=== PATIENT | male | born 1950 | race American Indian/Alaskan Native ===

== ENCOUNTER → 2018-11-18 14:15 | Outpatient (CLI) | payer OTHER, SELFPAY ==
--- NOTE | 2018-11-18 14:17 | DI.RAD.S_ITS ---
PROCEDURE: XR CHEST 2V INDICATIONS: worsening cough and rhales left side TECHNIQUE: 2 views of the chest were acquired. COMPARISON: [facility], , CHEST 2 VIEW, 03/07/2008, 8:12. FINDINGS: Surgical changes and devices: Median sternotomy wires and mediastinal surgical clips are again noted. Lungs and pleura: No focal consolidations are identified. No pleural effusions or pneumothorax. Mediastinum: Mediastinal contours are normal. There is posterior accentuation of the cardiac silhouette, which may represent left atrial enlargement. Bones and chest wall: No suspicious bony abnormalities. Soft tissues appear unremarkable. Posterolateral right eighth rib deformity is unchanged from comparison exam. Mild multilevel degenerative changes of the thoracic spine. IMPRESSION: No focal pulmonary consolidation consistent with pneumonia. Dictated by: Omer Su M.D. on 11/18/2018 at 15:09 Approved by: Omer Su M.D. on 11/18/2018 at 15:13
== END ==
PROVIDERS: PCP Family Medicine; Visit Provider Physician Assistant
DX: R05 Cough (principal); R09.89 Other specified symptoms and signs involving the circulatory and respiratory systems
CPT/HCPCS: 71046

== ENCOUNTER → 2019-01-02 08:01 | Outpatient (CLI) | payer OTHER, SELFPAY ==
[2019-01-02 09:12] LABS: Hemoglobin A1C% w Est Avg Glu 7.7 % (4.0-6.0)
[2019-01-02 09:29] LABS: Alanine Aminotransferase 52 IU/L (21-72); Albumin Globulin Ratio 1.3 (1.0-2.8); Alkaline Phosphatase 76 U/L (38-126); Aspartate Aminotransferase 40 IU/L (17-59); BUN Creatinine Ratio 21.3 (6-22); Bilirubin Total 0.8 mg/dL (0.2-1.3); Blood Urea Nitrogen 17 mg/dL (9-20); Calcium 9.1 mg/dL (8.4-10.2); Carbon Dioxide 26 mmol/L (22-32); Chloride 105 mmol/L (98-107); Estimated Glomerular Filt Rate > 60.0 mL/min (>60); Globulin 3.2 g/dL (1.7-4.1); Glucose 159 mg/dL (80-110); HEMOLYSIS < 15 (0-50); Potassium 4.8 mmol/L (3.4-5.1); Sodium 140 mmol/L (137-145); Total Protein 7.2 g/dL (6.3-8.2)
[2019-01-02 09:42] LABS: Free T3, Triiodothyronine Free 3.96 pg/mL (2.77-5.27); Free T4, Direct Thyroxine 0.89 ng/dL (0.78-2.19)
[2019-01-02 09:56] LABS: Thyroid Stimulating Hormone 4.99 uIU/mL (0.47-4.68)
[2019-01-02 14:59] LABS: INR 2.7 (0.9-1.3); Prothrombin Time 31.3 SECONDS (10.1-12.7)
== END ==
PROVIDERS: Family Provider Internal Medicine Cardiovascular Disease; PCP Family Medicine; Visit Provider Family Medicine
DX: E11.9 Type 2 diabetes mellitus without complications (principal); E78.5 Hyperlipidemia, unspecified; I10 Essential (primary) hypertension; R79.89 Other specified abnormal findings of blood chemistry; Z78.9 Other specified health status
CPT/HCPCS: 36415; 80053; 83036; 84439; 84443; 84481; 85610

== ENCOUNTER → 2019-01-29 11:52 | Outpatient (CLI) | payer OTHER, SELFPAY ==
--- NOTE | 2019-01-29 11:55 | DI.RAD.S_ITS ---
PROCEDURE: XR KNEE LT 3V INDICATIONS: Fall, swelling, pain, on blood thinners TECHNIQUE: 3 views of the knee were acquired. COMPARISON: None. FINDINGS: Bones: No displaced fracture or dislocation is identified. No suspicious osseous lesion is appreciated. Soft tissues: There is a moderate-sized knee joint effusion. Surgical clips are seen along the posterior-medial aspect of the knee. IMPRESSION: 1. No acute fracture of the left knee. 2. Small moderate-sized knee joint effusion. If there is clinical concern for a nonvisualized fracture, please consider CT or MRI for further evaluation. Dictated by: Armando Bella M.D. on 01/29/2019 at 11:24 Approved by: Armando Bella M.D. on 01/29/2019 at 11:24
== END ==
PROVIDERS: PCP Family Medicine; Visit Provider Physician Assistant
DX: S80.02XA Contusion of left knee, initial encounter (principal); M25.462 Effusion, left knee; W19.XXXA Unspecified fall, initial encounter
CPT/HCPCS: 73562

== ENCOUNTER 2019-05-11 14:04 | Day surgery (SDC) | payer OTHER, SELFPAY ==
--- NOTE | 2019-05-11 14:03 | PM.HP.1 ---
History of Present Illness History of Present Illness Date Patient Seen: 05/11/19 Time Patient Seen: 14:04 Chief complaint: 05903 SCREENING COLONOSCOPY Narrative: Patient presents for colorectal screening. They a previous colonoscopy 10 years ago that was negative. On further history denies any recent gastrointestinal symptoms. No nausea, vomiting, abdominal pain, loss of appetite, unexplained weight loss, change in bowel habits, diarrhea, constipation, melena, hematochezia, or bright red blood per rectum. Stop Warfarin for Afib 5 days ago INR today 1.1. Patient History Medical History Atrial fibrillation (Chronic Unknown) Coronary artery disease (Chronic Unknown) Diabetes (Chronic Unknown) History of ETOH abuse (Resolved Unknown) Hyperlipemia (Chronic Unknown) Hypertension (Chronic Unknown) Medial meniscus tear (Resolved 2015) Rosacea (Chronic Unknown) Surgical History H/O arthroscopic knee surgery (Resolved 10/2015) Hx of heart bypass surgery (Resolved 01/2008) Status post appendectomy (1959) Family History (Updated 10/04/14 @ 00:00 by Conversion Provider) Mother Tobacco abuse Father No problems noted. Social History (Updated 01/02/19 @ 09:31 by Kamila Murdock RN) marital status: household members: spouse occupational status: previously employed Smoking Status: Former smoker (Quit 1970) Tobacco: How many years used: 5 alcohol intake: current substance use type: marijuana Family & Social History Family History Mother Tobacco abuse Father No problems noted. Tobacco & Substance use: Smoking Status Former smoker alcohol intake current Meds Home Medications and Allergies Home Medications Medication Instructions Recorded Confirmed Type ASPIRIN (Aspirin EC) 81 mg PO Q DAY #0 12/16/12 01/20/19 History CHOLECALCIFEROL (VITAMIN D) 2,000 iu PO #0 12/16/12 01/20/19 History doxycycline hyclate 50 mg capsule 50 mg PO DAILY cap 09/16/18 01/20/19 History lisinopril 5 mg tablet 5 mg PO QDAY #30 tab 01/20/19 Rx warfarin 5 mg tablet See Rx Instructions .ROUTE 01/26/19 Rx .COMPLEX #90 tab metoprolol tartrate 50 mg tablet 100 mg PO DAILY #60 tab 03/28/19 Rx metformin 500 mg tablet 1,000 mg PO BID #120 tab 05/03/19 Rx atorvastatin [Lipitor] 20 mg PO QDAY 05/11/19 05/11/19 History Allergies Allergy/AdvReac Type Severity Reaction Status Date / Time No Known Drug Allergies Allergy Verified 05/11/19 14:18 Review of Systems Review of Systems ROS Unobtainable: All systems reviewed & are unremarkable except as noted in HPI and below Exam Narrative Exam Narrative: General-no acute distress, well nourished HEENT-moist mucous membranes, no scleral icterus Neck-supple, no lymphadenopathy Chest- non labored respirations, clear to auscultation bilaterally Cardiac-regular rate no peripheral edema Abdomen-soft, nontender, non distended Extremities-warm, well perfused Neurological-alert and oriented, no focal deficits Assessment & Plan Assessment and plan (1) Screening for colon cancer: Current visit: No Status: Acute Assessment & Plan narrative: Patient is requiring colorectal screening. Colonoscopy is recommended. Technical details were discussed. Risks, benefits, alternatives explained. Risks including but not limited to sedation, aspiration, bleeding, pain, missed lesion, incomplete examination, need for further radiographic studies, colonic perforation, need for major abdominal surgery, and all attendant risks major surgery were discussed at length. All questions were answered to their satisfaction, and they voiced understanding.
[2019-05-11] MEDS: SODIUM CHLORIDE 0.9% 1,000 ML 200 ML IV (14:17)
[2019-05-11 14:23] VITALS: BP 159/95; PULSE 71; RESP 15; TEMP 36.4; O2SAT 95
[2019-05-11 14:25] VITALS: BMI 27.7
[2019-05-11] MEDS: MIDAZOLAM 5 MG/5 ML VIAL IV (14:54)
[2019-05-11] MEDS: fentaNYL 250 MCG/5 ML INJ IV (14:55)
[2019-05-11 15:17] VITALS: BP 101/72; PULSE 69; RESP 9; TEMP 36.6; O2SAT 98
--- NOTE | 2019-05-11 15:17 | PM.OP.ENDO ---
Operative Date/Time/Diagnoses Date of procedure: 05/11/19 Time of procedure: 15:17 Pre-op diagnosis: screening colonoscopy Post-op diagnosis: same Procedure & Clinicians Study performed: colonoscopy Same procedure as scheduled: Yes Indications: 68-year-old male previous colonoscopy 10 years ago that was normal presents for routine screening Surgeon: Bernardo Iraheta Procedure Notes SCOAP/Timeout: Performed Procedure in detail: Patient placed in left lateral decubitus position. Time out was performed. Procedural sedation was administered with Versed and Fentanyl. A rectal exam demonstrated no external hemorrhoids no internal masses. Colonoscopy scope was placed into the rectum and advanced through the colon to the cecum. The ileocecal valve was identified. The scope was then slowly withdrawn examining colon thoroughly in all directions. The colonoscopy was notable for diverticulosis within the sigmoid colon. The remainder of the colon was normal, there were no masses polyps or colitis. The scope was retroflexed within the rectum demonstrated grade 1 internal hemorrhoids. The rectum was desufflated and the scope removed. Patient tolerated procedure well. Scope withdrawal time: 7 Sedation minutes: 21 Findings: diverticulosis and internal hemorrhoids Specimen(s): none sent Complications: none Impression: Diverticulosis Post-procedure Recommendations: Colonscopy in 10 years
[2019-05-11 15:22] VITALS: BP 104/66; PULSE 68; RESP 10; O2SAT 96
[2019-05-11 15:27] VITALS: BP 101/62; PULSE 82; RESP 13; O2SAT 97
[2019-05-11 15:37] VITALS: BP 109/79; PULSE 63; RESP 12; TEMP 36.6; O2SAT 95
--- NOTE | 2019-05-11 15:56 | SUR.PHASEII ---
Brought to [facility], [facility] helping pt to change clothes (spilled juice). IV dc'd. No dizziness/pain, talking to her.
--- NOTE | 2019-05-11 16:10 | SUR.PHASEII ---
1605 To ER entrance to meet , has book, given juice. Denies having any questions/concerns. Stable on feet.
== END 2019-05-11 16:05 | disposition home or self-care (01) ==
LOC: ENDO 14:06
PROVIDERS: PCP Family Medicine; Visit Provider Surgery
PROC: 0DJD8ZZ Inspection of Lower Intestinal Tract, Via Natural or Artificial Opening Endoscopic (ICD-10-PCS; CPT 45378; principal; 2019-05-11 15:00)
DX: Z12.11 Encounter for screening for malignant neoplasm of colon (principal); K57.30 Diverticulosis of large intestine without perforation or abscess without bleeding; K64.8 Other hemorrhoids; I48.91 Unspecified atrial fibrillation; Z79.01 Long term (current) use of anticoagulants
CPT/HCPCS: 45378; 99152; J2250; J3010

== ENCOUNTER → 2020-01-23 14:00 | Outpatient (CLI) | payer OTHER, SELFPAY ==
--- NOTE | 2020-01-23 15:50 | DIET.PN ---
Diabetes Intake: Initial Assessment Assess: Mr. Ballard is a 69 YOM referred for type 2 diabetes. He was diagnosed in the last year. He reports only checking his BG when he feels low which matches the BG results shown on his meter. He does not like checking his glucose and is interested in a home CGM to establish possible trends in readings. He lives with a retired dietitian who is very well known to me and reports he eats what she prepares. Dietary habits consist of whole grain, quinoa, brown rice, fruits, veggies, lean meats (bison, chicken, fish). He does drink beer every afternoon generally before dinner. He has chronic back pain and admits he has not been active for several years. Labs: Per pt report: A1c 9.2 SMB, 43, 56 Meds: metformin 1000 mg BID; glipizide 5mg a.m. Diet: per 24 hr recall: B: ww toast w/ PB, few bits of banana w/ meds L: half sandwich w/ veggies D: lean protein, veg dish, whole grain starch Wt: 200lb Ht: 70in BMI: 28.9 DX: Altered nutrition related laboratory values related to impaired glucose metabolism, lack of previous exposure to nutrition information as evidenced by pt report, diagnosis of diabetes, previous diet high in refined carbohydrates. Intervention: 1. Completed intake assessment. Discussed barriers to care. 2. Discussed pathophysiology of diabetes. Reviewed A1c and its correlation to blood glucose numbers. Discussed recommended BG ranges. 3. Discussed importance of self-monitoring, how often, and when to check. Reviewed use of glucometer. 4. Reviewed hyper/hypoglycemia and treatment. 5. Reviewed safe disposal of equipment (strip/lancets/insulin needles). 6. Created SMART goals for pt self-care and success. 7. Discussed program curriculum outline and class needs based on individual goals. 8. Reviewed medication use and effects on blood glucose. 9. Discussed alcohol and medication interactions. SMART Goals: 1. Patient has agreed to monitor fasting and evening blood glucose. He will look into a trial cont. glucose monitor Monitor/Evaluate: Anticipate good compliance. Pt will attend full DSME program.
== END ==
PROVIDERS: PCP Family Medicine; Referring Provider Family Medicine; Visit Provider Family Medicine
DX: E11.9 Type 2 diabetes mellitus without complications (principal); Z79.84 Long term (current) use of oral hypoglycemic drugs; Z71.3 Dietary counseling and surveillance
CPT/HCPCS: G0108

== ENCOUNTER → 2020-02-08 10:00 | Outpatient (CLI) | payer OTHER, SELFPAY ==
--- NOTE | 2020-02-08 11:46 | DIET.PN ---
Exercise/Lifestyle change: 1. Importance of exercise 2. FITT (frequency, intensity, time, type) 3. Strength training tips and guidelines 4. Glucose monitoring/ranges before and after a. Carbohydrate needs based on glucose ranges and duration/intensity of exercise b. Rule of 15 5. Proper foot attire 6. Developing strategies for behavior change 7. SMART Goal Setting 8. Home exercise routine demonstration (as a class)
== END ==
PROVIDERS: PCP Family Medicine; Referring Provider Family Medicine; Visit Provider Family Medicine
DX: E11.9 Type 2 diabetes mellitus without complications (principal); Z71.3 Dietary counseling and surveillance
CPT/HCPCS: G0109

== ENCOUNTER → 2020-03-05 11:31 | Outpatient (CLI) | payer OTHER, SELFPAY ==
--- NOTE | 2020-03-05 12:54 | DIET.PN ---
DIABETES Nutrition Initial Assessment:? ASSESS:??Mr. Ballard is a 69 yom??referred for type 2 diabetes seen as part of DSME program. He reports a significant decrease in blood sugars since diagnosis. He continues to monitor his BG particularly when he feels he is having hypoglycemia. He endorses more activity since our last visit including walking, yard work and boating. Pt concerned with accuracy of BG monitor as he has noticed several hypo?s without symptoms. ??? LABS: Per pt report:? A1c: 6.4 ? MEDS:?? metformin 1000mg BID; Glipizide 5mg ? DIET: Per 24-hour recall:? B: ww toast w/ pb, few bites of banana w/ meds L: ? sandwich w/ veggies D: lean protein, veg dish, whole grain starch Before bed: few bites banana w/ meds Eating Out: rarely or never Changes in Appetite: no change Nutrition Supplements: vit D ? Weight: 204# Height: 70? BMI: ? 29.27 Exercise:? walking daily, yard work NUTRITION DX 1. Altered Nutrition related labs related to impaired glucose metabolism, lack of previous exposure to accurate nutrition information as evidenced by pt report, dx of diabetes, previous diet high in refined carbohydrates.? INTERVENTION(s): 1. Reviewed pathophysiology of diabetes and impact of nutrition/diet on blood sugar control.? Discussed fed versus non-fed state.?? 2. Discussed the effect of carbohydrates/protein/fat on blood sugar control.? Stressed importance of consistent carbohydrate intake at each meal and provided instructions for recommended servings/portions of carbohydrates/protein per meal. Provided pt with educational material. 3. Reviewed carbohydrate counting and measuring carbohydrate content via serving sizes and reading nutrition labels.? Provided handouts.?? 4. Discussed the difference between simple versus complex carbohydrates and the effect of fiber on blood sugar control.? Discussed various methods to increase fiber content in diet. 5. Stressed importance of meal timing and not going >4-5 hours between meals. Encouraged adding protein to evening snack to support glucose control overnight. Patient agreeable. 6. Discussed healthy weight loss goals of 1-2lbs per week through diet and exercise.? Pt agreeable to walking at least 30 minutes daily. 7. Recommend monitoring fasting and alternating 2 hr PP mealtime glucose. MONITOR/EVALUATE: Anticipate good compliance.? Nutrition follow-up scheduled for 1 month.
[2020-03-05 12:55] VITALS: BMI 29.3
== END ==
PROVIDERS: PCP Family Medicine; Referring Provider Family Medicine; Visit Provider Family Medicine
DX: E11.65 Type 2 diabetes mellitus with hyperglycemia (principal); Z79.84 Long term (current) use of oral hypoglycemic drugs; Z71.3 Dietary counseling and surveillance
CPT/HCPCS: G0109

== ENCOUNTER → 2020-10-30 14:52 | Outpatient (CLI) | payer OTHER, SELFPAY ==
[2020-10-30 17:51] LABS: Free T3, Triiodothyronine Free 3.41 pg/mL (2.77-5.27); Free T4, Direct Thyroxine 0.78 ng/dL (0.78-2.19)
[2020-10-30 18:05] LABS: Thyroid Stimulating Hormone 3.31 uIU/mL (0.47-4.68)
== END ==
PROVIDERS: PCP Family Medicine; Referring Provider Family Medicine; Visit Provider Family Medicine
DX: R79.89 Other specified abnormal findings of blood chemistry (principal)
CPT/HCPCS: 36415; 84439; 84443; 84481

== ENCOUNTER → 2021-05-19 09:24 | Outpatient (CLI) | payer OTHER, SELFPAY ==
[2021-05-19 11:12] LABS: COVID19 -Nasal RAPID Negative (Negative)
== END ==
PROVIDERS: PCP Family Medicine; Visit Provider Physician Assistant
DX: Z01.812 Encounter for preprocedural laboratory examination (principal); Z20.822 Contact with and (suspected) exposure to COVID-19
CPT/HCPCS: 87635

== ENCOUNTER 2021-05-20 06:33 | Day surgery (SDC) | payer OTHER, SELFPAY ==
[2021-05-20] MEDS: PROPARACAINE 0.5% OPHTH SOL 2 DROPS EYE-OP (07:42)
[2021-05-20] MEDS: CATARACT EYE COMPOUND (10 DROPS/SYRINGE) 3 DROPS EYE-OP (07:43)
[2021-05-20 07:49] VITALS: BP 143/75; PULSE 59; RESP 16; TEMP 36.2; O2SAT 98; BMI 28.7
--- NOTE | 2021-05-20 08:33 | PM.PREOP ---
Pre-operative Note Interval Note History & Physical reviewed/Exam performed by Physician: Yes Changes to H&P: No
--- NOTE | 2021-05-20 08:33 | PM.OP.1 ---
Operative Date/Time/Diagnoses Pre-op diagnosis: Nuclear cataract right eye Procedure & Clinicians Procedure: Cataract Surgery Same procedure as scheduled: Yes Surgeon: Santi Red Anesthesia Type: MAC +/- and Sedation Operative Notes Procedure in detail: Patient brought to the operating suite. Tetracaine drops placed in the right eye. marking instrument was used to ana the vertical and horizontal meridians. Patient was prepped and draped in sterile manner. Wire lid speculum was placed in the eye. Betadine drops were placed on the eye. This was irrigated. Lidocaine jelly was placed on the eye. A paracentesis port was created with a side-port blade. 0.1 mL 1% preservative free lidocaine was injected into the anterior chamber. The anterior chamber was deepened with viscoelastic. 2.6 mm keratome was used to create a temporal clear corneal incision. Cystotome and Utrata forceps were used to create continuous tear capsulorrhexis. Balanced salt solution was used to hydro dissect the nucleus. The phacoemulsification handpiece was inserted and the nucleus was removed using the stop and chop technique. The irrigation aspiration handpiece was inserted and the remaining cortex was removed. Anterior chamber was deepened with viscoelastic. An Adames [id number] intraocular lens with a power of 23.0 was injected into the capsular bag. Irrigation aspiration handpiece was inserted and the remaining viscoelastic was removed. The lens was rotated to the 90 degree meridian. Incision was hydrated with balanced salt solution and found to be leak free with pressure with Weck-Viji sponges. 0.1 mL Vigamox injected anterior chamber. 0.3 mL Kenalog 10 mg was injected subconjunctivally. Lid speculum was removed. The patient left the operating room in excellent condition. Complications: none Post-operative Condition: stable Disposition: same day surgery
[2021-05-20] MEDS: HYALURONATE SODIUM 30 MG-10 MG/ML SYRINGES 1 BOX INTRAOCULA (08:49)
[2021-05-20] MEDS: LIDOCAINE 2% (GLYDO) 6 ML GEL TOP (08:49)
[2021-05-20] MEDS: MOXIFLOXACIN INJ 4 MG/0.8 ML VIAL 0.5 MG EYE-OP (08:49)
[2021-05-20] MEDS: PHENYLEPHRINE/LIDOCAINE VIAL (OR) 0.2 ML EYE-OP (08:50)
[2021-05-20] MEDS: TETRACAINE 0.5% OPHTH DROPS 4 ML 2 DROPS EYE-OP (08:50)
[2021-05-20] MEDS: BALANCED SALT IRRIG SOLN NO.2 500 ML, EPINEPHrine 1 MG IRR (08:52)
[2021-05-20] MEDS: TRIAMCINOLONE 50 MG/5 ML VIAL INJ (08:52)
[2021-05-20 09:14] VITALS: BP 141/81; PULSE 58; RESP 20; TEMP 36.5; O2SAT 100
== END 2021-05-20 09:16 | disposition home or self-care (01) ==
PROVIDERS: PCP Family Medicine; Referring Provider Ophthalmology; Visit Provider Ophthalmology
PROC: (CPT 66984; principal; 2021-05-20 08:45)
DX: H25.11 Age-related nuclear cataract, right eye (principal); E11.9 Type 2 diabetes mellitus without complications; E78.00 Pure hypercholesterolemia, unspecified; I10 Essential (primary) hypertension; I51.9 Heart disease, unspecified; I48.91 Unspecified atrial fibrillation; Z79.84 Long term (current) use of oral hypoglycemic drugs; Z79.01 Long term (current) use of anticoagulants
CPT/HCPCS: 66984; 82962; 85610; J0171; J2250; J3301; V2787

== ENCOUNTER → 2021-06-02 13:34 | Outpatient (CLI) | payer OTHER, SELFPAY ==
[2021-06-02 14:56] LABS: COVID19 -Nasal RAPID Negative (Negative)
== END ==
PROVIDERS: PCP Family Medicine; Visit Provider Nurse Practitioner Family
DX: Z20.822 Contact with and (suspected) exposure to COVID-19 (principal); Z01.812 Encounter for preprocedural laboratory examination
CPT/HCPCS: 87635

== ENCOUNTER 2021-06-03 06:22 | Day surgery (SDC) | payer OTHER, SELFPAY ==
[2021-06-03] MEDS: PROPARACAINE 0.5% OPHTH SOL 2 DROPS EYE-OP (07:09)
[2021-06-03] MEDS: CATARACT EYE COMPOUND (10 DROPS/SYRINGE) 3 DROPS EYE-OP (07:10)
[2021-06-03 07:18] VITALS: BP 137/86; PULSE 61; RESP 16; TEMP 36.8; O2SAT 98; BMI 28.7
--- NOTE | 2021-06-03 07:33 | PM.PREOP ---
Pre-operative Note Interval Note History & Physical reviewed/Exam performed by Physician: Yes Changes to H&P: No
--- NOTE | 2021-06-03 07:33 | PM.OP.1 ---
Operative Date/Time/Diagnoses Pre-op diagnosis: Nuclear Cataract Left eye Post-op diagnosis: same Procedure & Clinicians Same procedure as scheduled: Yes Surgeon: Santi Red Anesthesia Type: MAC +/- and Sedation Operative Notes Procedure in detail: Patient brought to the operating suite. Tetracaine drops placed in the left eye. Marking instrument was used to ana the vertical and horizontal meridians. Patient was prepped and draped in sterile manner. Wire lid speculum was placed in the eye. Betadine drops were placed on the eye. This was irrigated. Lidocaine jelly was placed on the eye. A paracentesis port was created with a side-port blade. 0.1 mL 1% preservative free lidocaine was injected into the anterior chamber. The anterior chamber was deepened with viscoelastic. 2.6 mm keratome was used to create a temporal clear corneal incision. Cystotome and Utrata forceps were used to create continuous tear capsulorrhexis. Balanced salt solution was used to hydro dissect the nucleus. The phacoemulsification handpiece was inserted and the nucleus was removed using the stop and chop technique. The irrigation aspiration handpiece was inserted and the remaining cortex was removed. Anterior chamber was deepened with viscoelastic. An Adames [id number] intraocular lens with a power of 23.0 was injected into the capsular bag. Irrigation aspiration handpiece was inserted and the remaining viscoelastic was removed. The lens was rotated to the 90 degree meridian. Incision was hydrated with balanced salt solution and found to be leak free with pressure with Weck-Viji sponges. 0.1 mL Vigamox injected anterior chamber. 0.3 mL Kenalog 10 mg was injected subconjunctivally. Lid speculum was removed. The patient left the operating room in excellent condition. Complications: none Post-operative Condition: stable Disposition: same day surgery
[2021-06-03] MEDS: MOXIFLOXACIN INJ 4 MG/0.8 ML VIAL 0.5 MG EYE-OP (07:51)
[2021-06-03] MEDS: PHENYLEPHRINE/LIDOCAINE VIAL (OR) 0.2 ML EYE-OP (07:51)
[2021-06-03] MEDS: HYALURONATE SODIUM 30 MG-10 MG/ML SYRINGES 1 BOX INTRAOCULA (07:51)
[2021-06-03] MEDS: TRIAMCINOLONE 50 MG/5 ML VIAL INJ (07:52)
[2021-06-03] MEDS: TETRACAINE 0.5% OPHTH DROPS 4 ML 2 DROPS EYE-OP (07:52)
[2021-06-03] MEDS: BALANCED SALT IRRIG SOLN NO.2 500 ML, EPINEPHrine 1 MG IRR (07:52)
[2021-06-03] MEDS: LIDOCAINE 2% (GLYDO) 6 ML GEL TOP (07:53)
[2021-06-03 08:04] VITALS: BP 120/71; PULSE 60; RESP 16; TEMP 36.7; O2SAT 97
== END 2021-06-03 08:15 | disposition home or self-care (01) ==
PROVIDERS: PCP Family Medicine; Referring Provider Ophthalmology; Visit Provider Ophthalmology
PROC: (CPT 66984; principal; 2021-06-03 07:45)
DX: H25.12 Age-related nuclear cataract, left eye (principal); E11.9 Type 2 diabetes mellitus without complications; E78.00 Pure hypercholesterolemia, unspecified; I10 Essential (primary) hypertension; I51.9 Heart disease, unspecified; Z79.84 Long term (current) use of oral hypoglycemic drugs; Z79.01 Long term (current) use of anticoagulants; I48.91 Unspecified atrial fibrillation; I25.10 Atherosclerotic heart disease of native coronary artery without angina pectoris
CPT/HCPCS: 66984; J0171; J2250; J3301; V2787

== ENCOUNTER → 2022-04-27 09:14 | Outpatient (CLI) | payer OTHER, SELFPAY ==
[2022-04-27 10:10] LABS: INR 1.9 (0.9-1.3); Prothrombin Time 21.9 SECONDS (10.1-12.7)
[2022-04-27 10:14] LABS: Add Manual Diff / Slide Review NO; Basophils Absolute Auto 0 /uL (0-100); Basophils Percent Auto 1.1 % (0-2); Eosinophils Absolute Auto 200 /uL (0-450); Eosinophils Percent Auto 5.9 % (2-4); Hematocrit 37.6 % (41-53); Hemoglobin 12.9 g/dL (13.5-17.5); Lymphocytes Absolute Auto 700 /uL (1100-4500); Lymphocytes Percent Auto 19.6 % (25-40); Mean Corpuscular HGB Conc 34.4 % (30-36); Mean Corpuscular Hemoglobin 31.6 PG (26-34); Mean Corpuscular Volume 91.8 fL (80-100); Monocytes Absolute Auto 300 /uL (0-900); Monocytes Percent Auto 9.1 % (3-14); Neutrophils Absolute Auto 2300 /uL (1500-7000); Neutrophils Percent Auto 64.3 % (50-75); Platelet Count 107 X10^3/uL (150-400); Red Blood Cell Count 4.09 X10^6/uL (4.5-5.9); Red Cell Distribution Width 15.3 % (11.6-14.8); White Blood Cell Count 3.5 X10^3/uL (4.5-11.0)
[2022-04-27 10:15] LABS: Hemoglobin A1C% w Est Avg Glu 6.8 % (4.0-6.0)
[2022-04-27 10:34] LABS: Alanine Aminotransferase 51 IU/L (<50); Albumin Globulin Ratio 1.2 (1.0-2.8); Alkaline Phosphatase 61 U/L (38-126); Aspartate Aminotransferase 43 IU/L (17-59); BUN Creatinine Ratio 20.8 (6-22); Bilirubin Total 0.7 mg/dL (0.2-1.3); Blood Urea Nitrogen 16 mg/dL (9-20); Calcium 8.7 mg/dL (8.4-10.2); Carbon Dioxide 25 mmol/L (22-32); Chloride 106 mmol/L (98-107); Cholesterol 110 mg/dL (140-199); Estimated Glomerular Filt Rate > 60 mL/min (>60); Globulin 3.4 g/dL (1.7-4.1); Glucose 196 mg/dL (80-110); HDL Cholesterol 32 mg/dL (40-60); HEMOLYSIS < 15 (0-50); LDL Cholesterol Calculated 52 mg/dL (<100); Potassium 4.2 mmol/L (3.4-5.1); Sodium 142 mmol/L (137-145); Total Protein 7.4 g/dL (6.3-8.2); Triglycerides 130 mg/dL (35-150)
[2022-04-27 11:00] LABS: Prostate Specific Antigen Scrn 0.549 ng/mL (0.1-4.0)
== END ==
PROVIDERS: PCP Family Medicine; Referring Provider Family Medicine; Visit Provider Family Medicine
DX: E11.42 Type 2 diabetes mellitus with diabetic polyneuropathy (principal); E78.5 Hyperlipidemia, unspecified; I10 Essential (primary) hypertension; R39.9 Unspecified symptoms and signs involving the genitourinary system; I48.91 Unspecified atrial fibrillation; Z79.01 Long term (current) use of anticoagulants; Z12.5 Encounter for screening for malignant neoplasm of prostate
CPT/HCPCS: 36415; 80053; 80061; 83036; 85025; 85610; G0103

== ENCOUNTER → 2022-10-05 14:57 | Outpatient (CLI) | payer OTHER, SELFPAY ==
--- NOTE | 2022-10-05 14:58 | DI.RAD.S_ITS ---
PROCEDURE: XR CHEST 2V INDICATIONS: pain to the back TECHNIQUE: 2 views of the chest were acquired. COMPARISON: [facility], [place], XR CHEST 2V, 11/18/2018, 14:22. [facility], [place], CHEST 2 VIEW, 03/07/2008, 8:12. FINDINGS: Surgical changes and devices: Sternotomy. Lungs and pleura: Pleural parenchymal bands within the left lower lobe. Mediastinum: Mediastinal contours are normal. Heart size is normal. Bones and chest wall: No suspicious bony abnormalities. Soft tissues appear unremarkable. IMPRESSION: No acute cardiopulmonary process. Dictated by: Orlando Morales M.D. on 10/05/2022 at 15:17 Approved by: Orlando Morales M.D. on 10/05/2022 at 15:18
== END ==
PROVIDERS: PCP Family Medicine; Referring Provider Family Medicine; Visit Provider Family Medicine
DX: M54.6 Pain in thoracic spine (principal)
CPT/HCPCS: 71046

== ENCOUNTER → 2023-04-26 07:21 | Outpatient (CLI) | payer OTHER, SELFPAY ==
--- NOTE | 2023-04-26 | DI.ECHO.S_ITS ---
[place] [facility]---------+ [facility] +---------+ : : [address] : : : : [id number] : : : : Phone: [phone]+ Echocardiogram Report + + :Name: HENRY ACOSTA Study Date: 04/26/2023 Height: 70 in : :[facility] ReadingLocation: Weight: 200 lb : : Gender: Male BSA: 2.1 m2 : :: 1950 Age: 72 yrs BP: 155/81 mmHg: :Reason For Study: Coronary Artery Disease : :Ordering Physician: LENIN, : :KATHLEEN Performed By: Tiff Melendez : :Referring: KATHLEEN PHELPS : + + Interpretation Summary The patient was in atrial fibrillation with heart rates between 47-78 bpm during the exam. The left ventricle is normal in size. The left ventricular ejection fraction is normal. Left ventricular ejection fraction is estimated to be 60 +/- 5%. No significant change in LVEF. The right ventricle is mildly dilated. The right ventricular systolic function is normal. The mitral valve leaflets appear mildly thickened, but open well. There is mild mitral annular calcification. An annuloplasty ring is noted in the mitral position. There is mild mitral regurgitation. No significant change in MR. The mitral valve mean gradient is 3.7 mmHg. Previously 2.4 mmHg. There is moderate tricuspid regurgitation. Compared to the prior echo exam, there has been no change in TR severity. The right ventricular systolic pressure is estimated to be at least 38 mmHg based on an estimated right atrial pressure of 8 mm Hg. Compared to the prior echo exam, there has been no change in the severity of pulmonary hypertension. Procedure: A two-dimensional transthoracic echocardiogram with color flow and Doppler was performed. The study quality was technically adequate. Comparison is made with the echocardiogram of 10/30/2016. The patient was in atrial fibrillation with heart rates between 47-78 bpm during the exam. Left Ventricle: The left ventricle is normal in size. Proximal septal thickening is noted. There is no echo evidence for significant left ventricular outflow tract obstruction. There is no thrombus. The left ventricular ejection fraction is normal. Left ventricular ejection fraction is estimated to be 60 +/- 5%. Septal motion is consistent with post-operative state. Diastolic function could not be accurately assessed due to atrial fibrillation. Right Ventricle: The right ventricle is mildly dilated. There has been no significant change since the previous study. The right ventricular systolic function is normal. Atria: The left atrium is severely dilated. There has been no significant change since the previous study. The right atrium is severely dilated. There is no Doppler evidence for an interatrial shunt. Mitral Valve: The mitral valve leaflets appear mildly thickened, but open well. There is mild mitral annular calcification. An annuloplasty ring is noted in the mitral position. There is mild mitral regurgitation. There is mild mitral stenosis. The mitral valve mean gradient is 3.7 mmHg. There is mild mitral regurgitation. Compared to the prior echo study, there has been no change in the severity of mitral regurgitation. Aortic Valve: The aortic valve is trileaflet. There is mild aortic valve sclerosis. There is discrete nodular thickening of the right coronary cusp. There is no aortic valve stenosis. There is trace aortic regurgitation. Tricuspid Valve: The tricuspid valve is normal. There is no tricuspid stenosis. There is moderate tricuspid regurgitation. The right ventricular systolic pressure is estimated to be at least 38 mmHg based on an estimated right atrial pressure of 8 mm Hg. Compared to the prior echo exam, there has been no change in TR severity. Compared to the prior echo exam, there has been no change in the severity of pulmonary hypertension. Pulmonic Valve: The pulmonic valve is not well visualized. There is no pulmonic valvular stenosis. There is trace pulmonic regurgitation. Great Vessels: The aortic root is normal size. The ascending aorta is normal in size. The pulmonary artery is normal size. The IVC is dilated (diameter is greater than 2.1 cm) yet it collapses greater than 50% with a sniff. This suggests a right atrial pressure of 8 mm Hg. Pericardium/ Pleura There is no pericardial effusion. There is no pleural effusion. MMode/2D Measurements & Calculations LVIDd: 4.7 cm LVOT diam: 2.0 cm LVIDs: 3.1 cm Ao root diam: 3.2 cm FS: 34.0 % asc Aorta Diam: 3.5 cm EPSS: 0.70 cm IVSd: 1.0 cm LVPWd: 1.2 cm LV kulkarni. diameter/BSA (cm/m^2): 2.3 LV sys. diameter/BSA (cm/m^2): 1.5 LA A2 area: 24.8 cm2 RA long axis: 6.9 cm LA A4 area: 25.2 cm2 RA area: 26.5 cm2 LA length (vol): 6.9 cm RA vol: 86.5 ml LA vol: 76.7 ml RA : 41.4 ml/m2 LA vol index: 36.7 ml/m2 IVC diam: 2.2 cm RVD1 (basal): 5.0 cm LVLs ap4: 6.1 cm LVLd ap2: 6.6 cm TAPSE_phl: 1.9 cm LVLs ap2: 5.8 cm Doppler Measurements & Calculations Ao V2 max: 113.0 cm/sec LVOT Max Bridger: 87.5 cm/sec Ao V2 mean: 74.4 cm/sec LV V1 max P.1 mmHg Ao max P.0 mmHg LV V1 VTI: 18.7 cm Ao mean P.5 mmHg LUIS(I,D): 2.2 cm2 Ao V2 VTI: 26.7 cm LUIS(V,D): 2.4 cm2 sev ratio: 0.70 LUIS indexed to BSA (cm^2/m^2): 1.1 Med Peak E' Bridger: 7.1 cm/sec TR max bridger: 274.7 cm/sec Lat Peak E' Bridger: 12.8 cm/sec TR max P.3 mmHg MVA(VTI): 1.5 cm2 PA V2 max: 104.0 cm/sec PA V2 mean: 71.9 cm/sec PA mean P.0 mmHg PA pr(Accel): 43.5 mmHg MV V2 mean: 84.0 cm/sec SV(LVOT): 58.6 ml MV mean P.7 mmHg MV V2 VTI: 38.2 cm AV VR_phl: 0.77 LUIS(VTI)/BSA_phl: 1.1 Reading Physician:03:12 PM
== END ==
PROVIDERS: PCP Family Medicine; Referring Provider Internal Medicine Cardiovascular Disease; Visit Provider Internal Medicine Cardiovascular Disease
DX: I08.3 Combined rheumatic disorders of mitral, aortic and tricuspid valves (principal); I25.810 Atherosclerosis of coronary artery bypass graft(s) without angina pectoris; I48.20 Chronic atrial fibrillation, unspecified; Z98.890 Other specified postprocedural states
CPT/HCPCS: 93306

== ENCOUNTER → 2023-04-30 10:05 | Outpatient (CLI) | payer OTHER, SELFPAY ==
--- NOTE | 2023-05-03 17:37 | DI.NM.S_ITS ---
DATE OF SERVICE: 04/30/2023 PROCEDURE: Exercise perfusion study INDICATIONS: 1. Known history of bypass surgery in January 2008, chronic AFib, history of mitral valve repair. 2. Exercise perfusion study is being done for CAD risk stratification. RADIOPHARMACEUTICAL: 26.1 millicurie technetium-99m Myoview IV was injected at stress and 11 millicurie technetium-99m Myoview IV was injected at rest. . CARDIAC STRESS: The patient underwent exercise perfusion study under the supervision of an attending staff. He walked on Lennox protocol for 4 minutes. Achieved maximum heart rate of 174, which was 149% of target heart rate. Resting blood pressure 128/80 and peak blood pressure 180/90. Achieved 5.8 METs of workload. ALEX positive 43%. No chest pain or anginal symptoms. [place]bee like pain. Baseline rhythm Afib with nonspecific ST-T changes including slight ST depression in inferior leads, lateral leads, which got more pronounced during exercise. The patient remained in AFib. In recovery, the patient has 3 beats run of ventricular triplet. No sustained ventricular tachycardia. RAW DATA: Increased subdiaphragmatic activity. GATED STUDY: Stress LV ejection fraction 73 and resting LV ejection fraction is 72% without any obvious wall motion abnormalities. Resting end-diastolic volume 103 mL. TID ratio 0.90, which is within normal limits. Lung/heart ratio 0.23, which is within normal limits. MYOCARDIAL PERFUSION SCAN: Stress supine, resting supine and stress prone images were compared to each other. Resting supine and stress supine images revealed small size, mildly decreased perfusion of basal inferior wall extending into the basal inferolateral wall. Stress supine images also revealed mildly decreased perfusion of distal anteroseptum. Stress supine and resting supine images perfusion defect got completely normalized during stress prone images suggestive of tissue attenuation artifact. No convincing ischemia or infarction pattern on stress prone images. CONCLUSION: I will call this study a normal myocardial perfusion study with evidence of tissue attenuation artifact, which got completely resolved during stress prone images. Diminished exercise tolerance. Baseline AFib with nonspecific ST-T changes which got more pronounced during exercise. Enhanced chronotropic response. The patient had perfusion study in December 2012. At that time he was able to walk on treadmill for 5 minutes and 54 seconds. There was element of diaphragmatic tissue attenuation artifact at that time, which got improved during stress prone images. At that time, there was persistence of basal anterior wall defect which was not seen in this study. In absence of reversible ischemia, normal perfusion on stress prone, overall preserved left ventricular function, overall low-risk myocardial perfusion scan. Brandon Ly - LEIDA/celi/horace doc#: [id number]/job#: [id number] dd: 05/03/2023 16:34:00 dt: 05/03/2023 17:12:00 DICTATING MD/COPIES TO: Aakash Quiroz MD COPIES MNE: FANY;
== END ==
PROVIDERS: PCP Family Medicine; Referring Provider Internal Medicine Cardiovascular Disease; Visit Provider Internal Medicine Cardiovascular Disease
DX: I25.810 Atherosclerosis of coronary artery bypass graft(s) without angina pectoris (principal); I48.91 Unspecified atrial fibrillation
CPT/HCPCS: 78452; 93016; 93017; 93018; A9502

== ENCOUNTER 2024-08-01 12:17 | Emergency (ER) | payer OTHER, SELFPAY ==
[2024-08-01 12:21] VITALS: BP 145/81; PULSE 82; RESP 16; TEMP 36.1; O2SAT 98; BMI 27.2
--- NOTE | 2024-08-01 12:51 | ED.UPPEXIN ---
HPI - Extremity Injury (Upper) General Chief Complaint: Extremity Injury, Upper Stated Complaint: injured lt elbow Time Seen by Provider: 08/01/24 12:49 Source: patient Mode of arrival: Ambulatory History of Present Illness HPI narrative: Patient 74-year-old male history of diabetes, atrial fibrillation on warfarin, hypertension hyperlipidemia, psoriasis presenting today with left elbow pain. he denies any sort of injury or fall. He reports swelling ongoing for the last 2 days. It really hurts to have his arm hanging down he has a sling and feels significantly better. No numbness tingling or weakness. He is psoriasis plaque on there it is mildly erythematous there is 1 particular spot that hurts a lot. He also was just on antibiotics for pneumonia he finished those antibiotics about 5 days ago. He denies fever or chills. Related Data Home Medications Medication Instructions Recorded Confirmed ASPIRIN (Aspirin EC) 81 mg PO Q DAY ##0 12/16/12 08/01/24 CHOLECALCIFEROL (VITAMIN D) 2,000 iu PO DAILY ##0 12/16/12 08/01/24 Previous Rx's Medication Instructions Recorded cyclobenzaprine 5 mg tablet 5 mg PO TID PRN muscle spasm #20 10/02/22 tabs furosemide 20 mg tablet 20 mg PO DAILY #90 tabs 05/05/23 empagliflozin 25 mg tablet 25 mg PO DAILY #90 tabs 08/12/23 (Jardiance) atorvastatin 40 mg tablet 40 mg PO DAILY #90 tabs 09/06/23 metformin 500 mg tablet 500 mg PO BID #180 tabs 09/06/23 lisinopril 5 mg tablet 5 mg PO DAILY #90 tabs 04/10/24 glipizide 5 mg tablet 5 mg PO DAILY #90 tabs 05/17/24 metoprolol tartrate 100 mg tablet 100 mg PO DAILY #90 tabs 06/20/24 warfarin 2.5 mg tablet 2.5 mg PO .COMPLEX #144 tabs 06/27/24 cephalexin 500 mg capsule 500 mg PO TID #21 caps 08/01/24 hydrocodone 5 mg-acetaminophen 325 1 tab PO Q6H PRN pain #8 tabs 08/01/24 mg tablet prednisone 20 mg tablet 20 mg PO DAILY #5 tabs 08/01/24 Allergies Allergy/AdvReac Type Severity Reaction Status Date / Time No Known Drug Allergies Allergy Verified 08/01/24 12:21 Patient History Medical History Leg cramps, sleep related On Coumadin for atrial fibrillation Bilateral lower extremity edema Plantar fasciitis of right foot AC joint pain Acute pain of left shoulder Thrombocytopenia Lymphopenia Normocytic anemia Cough Lower urinary tract symptoms (LUTS) Onychomycosis Diabetic neuropathy High thyroid stimulating hormone (TSH) level Lumbar strain Lipoma Upper extremity somatic dysfunction Somatic dysfunction of sacral spine Pelvic somatic dysfunction Segmental and somatic dysfunction of abdomen and other regions Segmental and somatic dysfunction of rib cage Segmental and somatic dysfunction of thoracic region Cervical somatic dysfunction Cranial somatic dysfunction Tension headache, chronic Chronic neck pain with normal neurological examination Stiff neck Skin cancer Kidney stones Heart failure History of fall Degenerative disc disease, cervical Eczema Rosacea (Unknown) History of ETOH abuse (Unknown) Coronary artery disease (Unknown) Medial meniscus tear (2016) Atrial fibrillation (Unknown) Hyperlipemia (Unknown) Hypertension (Unknown) Diabetes (Unknown) Surgical History Hx of heart bypass surgery (01/2008) H/O arthroscopic knee surgery (10/2015) Status post appendectomy (1959) Family History Mother Tobacco abuse Father No problems noted. Social History marital status: household members: spouse, family and children occupational status: previously employed Smoking Status: Former smoker Tobacco: How many years used: 5 alcohol intake: current substance use type: marijuana eating out: rarely or never Type(s) of exercise: none Smoking Status: Former smoker alcohol intake frequency: 3 or more drinks per day Exam Initial Vital Signs Initial Vital Signs: Vital Signs Temperature 96.9 F L 08/01/24 12:21 Pulse Rate 82 08/01/24 12:21 Respiratory Rate 16 08/01/24 12:21 Blood Pressure 145/81 H 08/01/24 12:21 Pulse Oximetry 98 08/01/24 12:21 Oxygen Delivery Method Room Air 08/01/24 12:21 GENERAL: Alert 74-year-old male and in no acute distress. HEENT: Head atraumatic,EOMI, pupils reactive, face symmetric, moist mucous membranes CARDIOVASCULAR: Regular rate and rhythm without murmurs, rubs or gallops. RESPIRATORY: Breath sounds equal bilaterally, no wheezes rales or rhonchi. ABDOMEN: Soft, nontender. Normoactive bowel sounds all 4 quadrants. No guarding or rebound. EXTREMITIES: Normal range of motion, no clubbing or edema. Neurovascularly intact Pain left elbow pinpoint, psoriasis plaque noted some mild edema no obvious fluctuation no streaking definitely limited range of motion neurovascularly intact sensation and deltoid and tacked in sensation. NEUROLOGICAL: Alert and oriented x4.Normal gait and speech. Cranial nerves II through XII grossly intact. SKIN: Warm, dry, no laceration, no petechiae, no rashes or lesions. Course Orders Ordered: ED Orders 08/01/24 12:58 XR elbow LT min 3V Stat 08/01/24 13:08 CBC Auto Diff [Complete Blood Count AUTO DIFF] Stat CMP [Comprehensive Metabolic Panel] Stat CRP [C-Reactive Protein Quant] Stat ESR [Erythrocyte Sedimentation Rate] Stat Prothrombin Time INR Stat Uric Acid Stat 08/01/24 13:35 Blood Culture Stat Discontinued Medications Acetaminophen (Acetaminophen 325 Mg Tablet) 975 mg PO NOW ONE Stop: 08/01/24 12:59 Last Admin: 08/01/24 13:18 Dose: 975 mg Documented By: Vital Signs Vital signs: Vital Signs - 8 hr 08/01/24 12:21 08/01/24 14:50 Temperature 96.9 F L 98.4 F Pulse Rate 82 66 Respiratory Rate 16 19 Blood Pressure 145/81 H 135/78 Pulse Oximetry 98 98 Oxygen Delivery Method Room Air Room Air MDM - Extremity Injury (Upper) Lab Data 08/01/24 13:08 08/01/24 13:08 Labs: Lab Results 08/01/24 Range/Units 13:08 WBC 5.9 (4.5-11.0) X10^3/uL RBC 4.52 (4.5-5.9) X10^6/uL Hgb 14.2 (13.5-17.5) g/dL Hct 42.1 (41-53) % MCV 93.1 (80-100) fL MCH 31.3 (26-34) PG MCHC 33.6 (30-36) % RDW 14.0 (11.6-14.8) % Plt Count 132 L (150-400) X10^3/uL Neut % (Auto) 69.2 (50-75) % Lymph % (Auto) 19.2 L (25-40) % [place] % (Auto) 7.3 (3-14) % Eos % (Auto) 3.4 (2-4) % Baso % (Auto) 0.9 (0-2) % Neut # (Auto) 4100 (6819-6861) /uL Lymph # (Auto) 1100 (1040-1565) /uL [place] # (Auto) 400 (0-900) /uL Eos # (Auto) 200 (0-450) /uL Baso # (Auto) 100 (0-100) /uL ESR 35 H (0-15) MM/HR PT 14.9 H (9.4-12.5) SECONDS INR 1.3 (0.9-1.3) Sodium 139 (137-145) mmol/L Potassium 4.0 (3.4-5.1) mmol/L Chloride 107 (98-107) mmol/L Carbon Dioxide 22 (22-32) mmol/L BUN 21 H (9-20) mg/dL Creatinine 0.97 (0.66-1.25) mg/dL Estimated GFR > 60 (>60) mL/min BUN/Creatinine Ratio 21.6 (6-22) Glucose 153 H (80-110) mg/dL Uric Acid 5.2 (3.5-8.5) mg/dL Calcium 9.2 (8.4-10.2) mg/dL Total Bilirubin 0.9 (0.2-1.3) mg/dL AST 39 (17-59) IU/L ALT 48 (<50) IU/L Alkaline Phosphatase 80 (38-126) U/L C-Reactive Protein 1.9 H (<1.0) mg/dL Total Protein 7.8 (6.3-8.2) g/dL Albumin 4.4 (3.5-5.0) g/dL Globulin 3.4 (1.7-4.1) g/dL Albumin/Globulin Ratio 1.3 (1.0-2.8) Imaging Data Extremity x-ray #1: Radiologist's Impression: PROCEDURE: XR ELBOW LT MIN 3V INDICATIONS: pain no injury TECHNIQUE: 3 views of the elbow were acquired. COMPARISON: None. FINDINGS: Bones: No fractures or dislocations. No suspicious bony lesions. Soft tissues: Displacement of anterior fat pad suggestive of moderate joint effusion. No suspicious soft tissue calcifications. IMPRESSION: No definite acute displaced fracture or dislocation is seen. Presence of moderate joint effusion concerning for occult elbow fracture. Consider follow-up study in 10-14 days for further evaluation if symptoms persists. Alternatively, CT of elbow can be done for further evaluation. Dictated by: Keenan Walton M.D. on 08/01/2024 at 13:36 MDM Narrative Medical decision making narrative: CC: Left elbow pain Complicating co-morbidities: Atrial fibrillation on warfarin diabetes psoriasis Differential considered: Septic joint cellulitis gout abscess Exam documented above, pertinent findings include: Left elbow is tender there is definite psoriasis plaque very light erythema there is no streaking there is no real fluctuation but definitely need support in sling neurovascularly intact Lab Test results independently reviewed as above. Pertinent findings: CBC 5.9, ESR CRP 1.9 INR 1.3 Blood cultures pending Imaging studies independently reviewed: Significant swelling questionable fracture Treatments: tylenol Re-evaluations:sleeping easily arousable Discussion: 74-year-old male history of psoriasis diabetes presenting today significant left elbow pain. He is adamant he has not fallen or done any sort of injury. He does have significant edema. No significant erythema but he does have a psoriasis plaque right next to the area were hurts. He has no leukocytosis mild elevation of CRP and ESR blood cultures are pending but really do not think this is a septic joint. His uric acid is negative without history of gout seems unlikely We will start a short course of prednisone and antibiotics for cellulitis encouraged him to return to ED if symptoms are worsening Discharge Plan Departure Patient Disposition: Home Clinical Impression: Cellulitis Instructions: Cellulitis, DI for Elbow Pain Activity Restrictions/Additional Instructions: *You have been diagnosed with probable cellulitis *What to do: I think you have mild infection in your skin which is causing swelling and pain. Elevate and ice often INR 1.3-your INR today is low 1.3 *Continue to take medications as directed Keflex 500 mg 3 times a day for 7 days Prednisone 20 mg once a day for 5 days [place] 1 tablet every 6 hours if needed for severe pain Benadryl 25 mg if needed for difficulty sleeping at night while taking prednisone *Follow up with your primary care provider in 2-3 days or call [phone] *Return to ER if you should have increasing pain swelling redness fever [or] any new, worsening or concerning symptoms CONTROLLED SUBSTANCE DISCHARGE (Narcotoic/benzodiazepine/Flexeril/Phenergan) 1. You have been prescribed narcotic medications, it does have acetaminophen/Tylenol/paracetamol in it, DO NOT TAKE MORE THAN 4,00mg in 24 hours of Tylenol. TRAMADOL DOES NOT CONTAIN TYLENOL 2. Please understand that we cannot provide further refills of narcotics, benzodiazepines or controlled substances through the ED and her pain management will need to be through your provider. 3. While on these medications you cannot drive or operate heavy machinery. 4. You cannot sign legal documents or perform any duties such as this. 5. As long as you're taking opiate pain medications he should also be taking a stool softener such as Colace, Dulcolax, MiraLAX or prune juice, to help avoid constipation. Prescriptions: New hydrocodone-acetaminophen 5-325 mg tablet 1 tab PO Q6H PRN (Reason: pain) Qty: 8 0RF prednisone 20 mg tablet 20 mg PO DAILY Qty: 5 0RF cephalexin 500 mg capsule 500 mg PO TID Qty: 21 0RF No Action cyclobenzaprine 5 mg tablet 5 mg PO TID PRN (Reason: muscle spasm) Qty: 20 0RF ASPIRIN (Aspirin EC) 81 mg PO Q DAY Qty: 0 CHOLECALCIFEROL (VITAMIN D) 2,000 iu PO DAILY Qty: 0 metformin 500 mg tablet 500 mg PO BID Qty: 180 1RF atorvastatin 40 mg tablet 40 mg PO DAILY Qty: 90 1RF lisinopril 5 mg tablet 5 mg PO DAILY Qty: 90 3RF glipizide 5 mg tablet 5 mg PO DAILY Qty: 90 2RF metoprolol tartrate 100 mg tablet 100 mg PO DAILY Qty: 90 1RF warfarin 2.5 mg tablet 2.5 mg PO .COMPLEX Qty: 144 2RF Protocol: Dose Management Condition: Wednesday Dose/Route: 2.5 mg Instruction: 1 x 2.5 mg tablet Condition: Wednesday Dose/Route: 5 mg Instruction: 2 x 2.5 mg tablets Condition: Wednesday Dose/Route: 2.5 mg Instruction: 1 x 2.5 mg tablet Condition: Wednesday Dose/Route: 2.5 mg Instruction: 1 x 2.5 mg tablet Condition: Dose/Route: 2.5 mg Instruction: 1 x 2.5 mg tablet Condition: Wednesday Dose/Route: 5 mg Instruction: 2 x 2.5 mg tablets Condition: Wednesday Dose/Route: 2.5 mg Instruction: 1 x 2.5 mg tablet Protocol Text: Adjustment Start Date: Wednesday06/26/24 INR Value: 2.2 INR Date: 06/23/24 Recheck Date: 07/24/24 Rx Instructions: 2.5 mg orally Take 2.5mg. (1 tab) Wednesday and Wednesday and take 5mg. (2 tabs) all other days; furosemide 20 mg tablet 20 mg PO DAILY Qty: 90 3RF Jardiance 25 mg tablet 25 mg PO DAILY Qty: 90 3RF Referrals: Geovanni Pérez DO [Primary Care Provider] - Stand Alone Forms: Patient Portal/API/Survey
--- NOTE | 2024-08-01 12:58 | DI.RAD.S_ITS ---
PROCEDURE: XR ELBOW LT MIN 3V INDICATIONS: pain no injury TECHNIQUE: 3 views of the elbow were acquired. COMPARISON: None. FINDINGS: Bones: No fractures or dislocations. No suspicious bony lesions. Soft tissues: Displacement of anterior fat pad suggestive of moderate joint effusion. No suspicious soft tissue calcifications. IMPRESSION: No definite acute displaced fracture or dislocation is seen. Presence of moderate joint effusion concerning for occult elbow fracture. Consider follow-up study in 10-14 days for further evaluation if symptoms persists. Alternatively, CT of elbow can be done for further evaluation. Dictated by: Keenan Walton M.D. on 08/01/2024 at 13:36 Approved by: Keenan Walton M.D. on 08/01/2024 at 13:37
[2024-08-01 13:14] LABS: Add Manual Diff / Slide Review NO; Basophils Absolute Auto 100 /uL (0-100); Basophils Percent Auto 0.9 % (0-2); Eosinophils Absolute Auto 200 /uL (0-450); Eosinophils Percent Auto 3.4 % (2-4); Hematocrit 42.1 % (41-53); Hemoglobin 14.2 g/dL (13.5-17.5); Lymphocytes Absolute Auto 1100 /uL (1100-4500); Lymphocytes Percent Auto 19.2 % (25-40); Mean Corpuscular HGB Conc 33.6 % (30-36); Mean Corpuscular Hemoglobin 31.3 PG (26-34); Mean Corpuscular Volume 93.1 fL (80-100); Monocytes Absolute Auto 400 /uL (0-900); Monocytes Percent Auto 7.3 % (3-14); Neutrophils Absolute Auto 4100 /uL (1500-7000); Neutrophils Percent Auto 69.2 % (50-75); Platelet Count 132 X10^3/uL (150-400); Red Blood Cell Count 4.52 X10^6/uL (4.5-5.9); White Blood Cell Count 5.9 X10^3/uL (4.5-11.0)
[2024-08-01] MEDS: ACETAMINOPHEN 325 MG TABLET 975 MG PO (13:18)
[2024-08-01 13:21] LABS: INR 1.3 (0.9-1.3); Prothrombin Time 14.9 SECONDS (9.4-12.5)
[2024-08-01 13:31] LABS: Alanine Aminotransferase 48 IU/L (<50); Albumin 4.4 g/dL (3.5-5.0); Albumin Globulin Ratio 1.3 (1.0-2.8); Alkaline Phosphatase 80 U/L (38-126); Aspartate Aminotransferase 39 IU/L (17-59); BUN Creatinine Ratio 21.6 (6-22); Bilirubin Total 0.9 mg/dL (0.2-1.3); Blood Urea Nitrogen 21 mg/dL (9-20); C-Reactive Protein Quant 1.9 mg/dL (<1.0); Calcium 9.2 mg/dL (8.4-10.2); Carbon Dioxide 22 mmol/L (22-32); Chloride 107 mmol/L (98-107); Estimated Glomerular Filt Rate > 60 mL/min (>60); Globulin 3.4 g/dL (1.7-4.1); Glucose 153 mg/dL (80-110); HEMOLYSIS < 15 (0-50); Sodium 139 mmol/L (137-145); Total Protein 7.8 g/dL (6.3-8.2)
[2024-08-01 14:14] LABS: Uric Acid 5.2 mg/dL (3.5-8.5)
[2024-08-01 14:16] LABS: Erythrocyte Sedimentation Rate 35 MM/HR (0-15)
[2024-08-01 14:50] VITALS: BP 135/78; PULSE 66; RESP 19; TEMP 36.9; O2SAT 98
== END 2024-08-01 14:51 | disposition home or self-care (01) ==
PROVIDERS: Emergency Provider Emergency Medicine; PCP Family Medicine
DX: L03.114 Cellulitis of left upper limb (principal); I48.91 Unspecified atrial fibrillation; E11.9 Type 2 diabetes mellitus without complications; Z79.01 Long term (current) use of anticoagulants; L40.9 Psoriasis, unspecified
CPT/HCPCS: 36415; 73080; 80053; 84550; 85025; 85610; 85651; 86140; 87040; 99283; 99284

== ENCOUNTER → 2025-07-05 09:58 | Outpatient (CLI) | payer OTHER, SELFPAY ==
[2025-07-05 11:24] LABS: Hemoglobin A1C% w Est Avg Glu 6.1 % (4.0-6.0)
[2025-07-05 11:50] LABS: Blood Urea Nitrogen 15 mg/dL (9-20); Cholesterol 131 mg/dL (140-199); Estimated Glomerular Filt Rate > 60 mL/min (>60); HDL Cholesterol 59 mg/dL (40-60); Triglycerides 178 mg/dL (35-150)
== END ==
PROVIDERS: PCP Family Medicine; Referring Provider Family Medicine; Visit Provider Family Medicine
DX: E11.65 Type 2 diabetes mellitus with hyperglycemia (principal); R79.9 Abnormal finding of blood chemistry, unspecified; E78.5 Hyperlipidemia, unspecified
CPT/HCPCS: 36415; 80061; 82565; 83036; 84520